=== PATIENT | male | born 1965 | race African-American/Black ===

== ENCOUNTER 2017-03-06 17:34 | Emergency (ER) | payer OTHER ==
[~2017-03-06] VITALS: Ht 172.7 cm; Wt 78.0 kg
[2017-03-06 17:40] VITALS: BP 120/84; PULSE 71; RESP 16; TEMP 98.3; O2SAT 96
[2017-03-06] MEDS ORDERED: RISP1 PO (18:06)
[2017-03-06 18:45] LABS: AUTOMATED NEUTROPHIL # 8.9 TH/MM3 (1.8-7.7); BASOPHIL % 0.3 % (0.0-2.0); EOSINOPHIL % 0.1 % (0.0-4.0); HEMO FLAGS DIFF FINAL; LYMPH % 8.2 % (9.0-44.0); LYMPHOCYTE # 0.8 TH/MM3 (1.0-4.8); MEAN CORPUSCULAR HEMOGLOBIN 30.7 PG (27.0-34.0); MONO % 5.2 % (0.0-8.0); NEUT % 86.2 % (16.0-70.0); PLATELET COUNT 274 TH/MM3 (150-450); RED CELL DISTRIBUTION WIDTH 14.2 % (11.6-17.2); WHITE BLOOD COUNT 10.3 TH/MM3 (4.0-11.0)
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
[2017-03-06 19:00] LABS: ANION GAP 11 MEQ/L (5-15); AST (GOT) 23 U/L (15-37); BICARBONATE 24.2 MEQ/L (21.0-32.0); BLOOD UREA NITROGEN 11 MG/DL (7-18); CHLORIDE 103 MEQ/L (98-107); GLOMERULAR FILTRATION RATE 78 ML/MIN (>89); POTASSIUM 3.6 MEQ/L (3.5-5.1); SODIUM (NA) 138 MEQ/L (136-145)
[2017-03-06 19:03] LABS: ALKALINE PHOSPHATASE 75 U/L (45-117); ALT (GPT) 28 U/L (12-78); TOTAL BILIRUBIN ADULT 0.7 MG/DL (0.2-1.0)
[2017-03-06 20:31] VITALS: BP 150/89; PULSE 65; RESP 18; TEMP 98.8; O2SAT 99
[2017-03-06] MEDS ORDERED: ACETAMINOPHEN 500 MG CPLT PO ONE (21:30)
[2017-03-07 02:42] VITALS: BP 117/67; PULSE 55; RESP 18; O2SAT 97
[2017-03-07 06:00] VITALS: BP 111/70; PULSE 52; RESP 19; O2SAT 98
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
== END 2017-03-07 11:23 | disposition home or self-care (01) ==
LOC: NEDAMB 17:34 → NEPJ 03-07 11:23
DX: F43.24 Adjustment disorder with disturbance of conduct (principal)
CPT/HCPCS: 80053; 85025; 99284